=== PATIENT | female | born 1970 | race Caucasian/White ===

== ENCOUNTER 2019-10-03 18:09 | Observation (INO) ==
[2019-10-03 19:23] LABS: Bilirubin,Urine Negative (Negative); Blood,Urine Trace (Negative); Clarity,Urine Cloudy (Clear); Color,Urine Yellow (Yellow); Glucose,Urine (UA) Normal (Normal); Ketones,Urine Negative (Negative); Leukocyte Esterase,Urine Negative (Negative); Nitrite,Urine Negative (Negative); Protein,Urine Trace mg/dL (Neg-Trace); Specific Gravity,Urine 1.028 (1.010-1.025); Urobilinogen,Urine Normal (Normal)
[2019-10-03 19:26] LABS: Basophils # 0.1 K/mcL (0.0-0.2); Basophils % 0.6 %; Eosinophils # 0.2 K/mcL (0.0-0.6); Eosinophils % 1.7 %; Hemoglobin 13.3 g/dL (11.5-15.4); Immature Granulocytes % 0.4 % (0-4); Lymphocytes # 2.2 K/mcL (0.6-4.6); Lymphocytes % 18.7 %; Mean Corpuscular HGB Conc 33.3 g/dL (31.6-35.5); Mean Corpuscular Hemoglobin 28.1 pg (28.0-33.3); Mean Corpuscular Volume 84.4 fL (83.0-100.0); Mean Platelet Volume 9.2 fL (9.4-12.4); Monocytes # 0.9 K/mcL (0.0-1.3); Monocytes % 7.4 %; Neutrophils # 8.2 K/mcL (1.6-8.9); Platelet Count 361 K/mcL (140-400); Red Blood Count 4.74 M/mcL (3.82-4.97); Red Cell Distribution Width 13.2 % (11.5-14.5); Segmented Neutrophils % 71.2 %; White Blood Count 11.5 K/mcL (4.3-11.1)
[2019-10-03 19:26] LABS: Bacteria,Urine Moderate per hpf (None-Few); Hyaline Casts,Urine None Seen per lpf (None-Few); Squamous Epithelial Cell,Urine Many per lpf (None-Few)
[2019-10-03 19:48] LABS: Alanine Aminotransferase 12 Units/L (7-52); Albumin 4.1 g/dL (3.5-5.7); Albumin/Globulin Ratio 1.1 (1.1-2.2); Alkaline Phosphatase 94 Units/L (34-104); Amylase 38 Units/L (29-103); Aspartate Amino Transferase 11 Units/L (13-39); BUN/Creatinine Ratio 17 (6-26); Bilirubin,Direct 0.1 mg/dL (0.0-0.2); Bilirubin,Indirect 0.5 mg/dL (0.0-1.0); Bilirubin,Total 0.6 mg/dL (0.3-1.0); Blood Urea Nitrogen 13 mg/dL (6-20); Calcium 9.5 mg/dL (8.6-10.3); Carbon Dioxide 28 mEq/L (23-29); Chloride 103 mEq/L (98-107); Globulin 3.8 g/dL (2.4-3.5); Glucose 101 mg/dL (70-105); Lipase 15 Units/L (11-82); Osmolality,Calculated 286 (280-300); Potassium 3.9 mEq/L (3.5-5.1); Sodium 138 mEq/L (136-145); Total Protein 7.9 g/dL (6.4-8.9); eGFR For African Americans > 60 (> 60); eGFR For Non-African Americans > 60 (> 60)
[2019-10-03] MEDS ORDERED: Isovue-370 500 ML BOTTLE IVP ONE (20:56)
[2019-10-03] MEDS ORDERED: Piperacillin/Tazobactam 3.375 GM in 0.9 % Sodium Chloride Mini Bag 100 ML IVPB ONE (23:58)
[2019-10-04] MEDS ORDERED: Morphine Sulfate 2 MG/ML SYRINGE IVP ONE (00:47)
[2019-10-04] MEDS ORDERED: Acetaminophen 325 MG TABLET PO PRN (01:07)
[2019-10-04] MEDS ORDERED: Ondansetron 4 MG/2 ML VIAL IVP PRN (01:07)
[2019-10-04] MEDS ORDERED: Naloxone 0.4 MG/ML INJ IVP PRN (01:07)
[2019-10-04] MEDS ORDERED: 0.9 % Sodium Chloride 1,000 ML IVC SCH (01:15)
[2019-10-04] MEDS: Morphine Sulfate 2 MG/ML SYRINGE IVP PRN ×3 (05:08→17:45)
[2019-10-04 07:12] LABS: Basophils # 0.1 K/mcL (0.0-0.2); Basophils % 0.6 %; Eosinophils # 0.3 K/mcL (0.0-0.6); Eosinophils % 2.5 %; Hematocrit 37.4 % (35.3-44.9); Hemoglobin 11.8 g/dL (11.5-15.4); Immature Granulocytes % 0.4 % (0-4); Lymphocytes # 2.5 K/mcL (0.6-4.6); Lymphocytes % 24.9 %; Mean Corpuscular HGB Conc 31.6 g/dL (31.6-35.5); Mean Corpuscular Hemoglobin 27.7 pg (28.0-33.3); Mean Corpuscular Volume 87.8 fL (83.0-100.0); Mean Platelet Volume 9.5 fL (9.4-12.4); Monocytes # 0.9 K/mcL (0.0-1.3); Monocytes % 8.8 %; Neutrophils # 6.2 K/mcL (1.6-8.9); Platelet Count 328 K/mcL (140-400); Red Blood Count 4.26 M/mcL (3.82-4.97); Red Cell Distribution Width 13.4 % (11.5-14.5); Segmented Neutrophils % 62.8 %; White Blood Count 9.8 K/mcL (4.3-11.1)
[2019-10-04 07:30] LABS: Alanine Aminotransferase 24 Units/L (7-52); Albumin 3.8 g/dL (3.5-5.7); Albumin/Globulin Ratio 1.1 (1.1-2.2); Alkaline Phosphatase 91 Units/L (34-104); Aspartate Amino Transferase 36 Units/L (13-39); BUN/Creatinine Ratio 15 (6-26); Bilirubin,Total 0.8 mg/dL (0.3-1.0); Blood Urea Nitrogen 12 mg/dL (6-20); Carbon Dioxide 26 mEq/L (23-29); Chloride 102 mEq/L (98-107); Globulin 3.4 g/dL (2.4-3.5); Glucose 118 mg/dL (70-105); Magnesium 1.9 mg/dL (1.6-2.6); Osmolality,Calculated 289 (280-300); Potassium 3.6 mEq/L (3.5-5.1); Sodium 139 mEq/L (136-145); Total Protein 7.2 g/dL (6.4-8.9); eGFR For African Americans > 60 (> 60); eGFR For Non-African Americans > 60 (> 60)
[2019-10-04] MEDS: *HR* Heparin 5,000 UNIT/ML VIAL SQ SCH ×3 (09:03→18:25)
[2019-10-04] MEDS: Piperacillin/Tazobactam 3.375 GM in 0.9 % Sodium Chloride Mini Bag 100 ML IVPB SCH ×3 (09:28→23:55)
[2019-10-05] MEDS: Morphine Sulfate 2 MG/ML SYRINGE IVP PRN ×2 (01:49→08:26)
[2019-10-05] MEDS: *HR* Heparin 5,000 UNIT/ML VIAL SQ SCH ×2 (05:43→15:49)
[2019-10-05] MEDS ORDERED: Acetaminophen 325 MG TABLET PO PRN (08:26)
[2019-10-05] MEDS: Piperacillin/Tazobactam 3.375 GM in 0.9 % Sodium Chloride Mini Bag 100 ML IVPB SCH ×3 (08:27→23:58)
[2019-10-05] MEDS: *HR* OxyCODONE/APAP 5/325 TABLET PO PRN ×2 (12:13→19:53)
[2019-10-06] MEDS: *HR* Heparin 5,000 UNIT/ML VIAL SQ SCH (06:09)
[2019-10-06 07:44] VITALS: BP 149/82
[2019-10-06] MEDS: Piperacillin/Tazobactam 3.375 GM in 0.9 % Sodium Chloride Mini Bag 100 ML IVPB SCH (07:56)
[2019-10-06] MEDS: *HR* OxyCODONE/APAP 5/325 TABLET PO PRN (07:59)
[2019-10-06] MEDS ORDERED: Lactobacillus 1 EACH CAP.SPRINK PO SCH (10:16)
== END 2019-10-06 14:05 | disposition home or self-care (01) ==
LOC: CDU 18:09 → EMEROOARM 18:09 → SUATTDRO 10-04 00:17 → CDU 10-04 01:16 → 3BNU 10-05 15:41
PROVIDERS: ADMIT Family Medicine; ATTEND Internal Medicine